=== PATIENT | female | born 1990 | race Caucasian/White ===

== ENCOUNTER 2017-03-29 15:10 | Emergency (ER) | payer MEDICAID ==
[~2017-03-29] VITALS: Ht 160 cm; Wt 70.0 kg
[~2017-03-29 15:10] MED LIST: STOO100T PO
[2017-03-29 15:12] VITALS: BP 126/78; PULSE 80; RESP 17; TEMP 98.5; O2SAT 98
--- NOTE | 2017-03-29 15:43 | PD ---
Physical Exam Time Seen by Provider: 15:41 Narrative 26yo F c/o nausea, dizziness, lightheadedness, and feeling hot, lower abd pain, and having to push to pee x 1month. Deis abd vag dc, odor, irritation. LMP mid March. Patient seen in triage. VS reviewed. Patient awaiting bed placement. Data Data Last Documented VS Vital Signs Date Time Temp Pulse Resp B/P (MAP) Pulse Ox O2 Delivery O2 Flow Rate FiO2 03/29/17 15:12 98.5 80 17 126/78 (94) 98 MDM Supervised Visit with HELEN: Jennifer Coley Mar 29, 2017 15:43
[2017-03-29] MEDS ORDERED: SODIUM CHLORIDE 0.9% FLUSH 10 ML FLUSH IV FLUSH PRN (15:45)
[2017-03-29 16:19] LABS: BLOOD, URINE NEG (NEG); GLUCOSE,URINE NEG (NEG); KETONE, URINE NEG (NEG); NITRITE,URINE NEG (NEG); PH, URINE 7.5 (5.0-8.5); SQUAMOUS EPITHELIAL CELL URINE 1 /hpf (0-5); URINE COLOR YELLOW (YELLW/STRAW)
[2017-03-29 16:23] LABS: COMMENT (UR) CULT NOT INDICATED; CULTURE IF INDICATED CULT NOT INDICATED
[2017-03-29 16:39] LABS: AUTOMATED NEUTROPHIL # 7.3 TH/MM3 (1.8-7.7); BASOPHIL % 0.2 % (0.0-2.0); EOSINOPHIL # 0.1 TH/MM3 (0-0.4); EOSINOPHIL % 0.5 % (0.0-4.0); HEMATOCRIT 43.1 % (35.0-46.0); HEMO FLAGS DIFF FINAL; LYMPH % 15.7 % (9.0-44.0); LYMPHOCYTE # 1.5 TH/MM3 (1.0-4.8); MEAN CORPUSCULAR HEMOGLOBIN 30.5 PG (27.0-34.0); MEAN CORPUSCULAR HGB CONC 33.5 % (32.0-36.0); NEUT % 77.6 % (16.0-70.0); PLATELET COUNT 227 TH/MM3 (150-450); RED BLOOD COUNT 4.74 MIL/MM3 (4.00-5.30); RED CELL DISTRIBUTION WIDTH 13.2 % (11.6-17.2); WHITE BLOOD COUNT 9.4 TH/MM3 (4.0-11.0)
[2017-03-29 16:48] LABS: ALT (GPT) 18 U/L (10-53); ANION GAP 2 MEQ/L (5-15); AST (GOT) 14 U/L (15-37); BLOOD UREA NITROGEN 9 MG/DL (7-18); CHLORIDE 108 MEQ/L (98-107); GLOMERULAR FILTRATION RATE 114 ML/MIN (>89); POTASSIUM 4.5 MEQ/L (3.5-5.1); SODIUM (NA) 137 MEQ/L (136-145)
[2017-03-29 16:51] LABS: ALKALINE PHOSPHATASE 70 U/L (45-117); TOTAL BILIRUBIN ADULT 0.3 MG/DL (0.2-1.0)
--- NOTE | 2017-03-29 17:44 | PD ---
HPI Chief Complaint: GI Complaint Time Seen by Provider: 17:43 Travel History International Travel<30 days: No Contact w/Intl Traveler<30days: No Traveled to known affect area: No History of Present Illness HPI 26 year old female with no significant medical history presents to emergency department for evaluation of difficulty urinating, nausea, constipation, and generalized fatigue over the last months to a year. Denies any vaginal discharge or bleeding. No chance of . Patient states she has been to multiple physicians and nobody has been able to figure out what is wrong with her. She denies any acute changes in her symptoms. She states that she feels dehydrated. She denies any fever or chills. No chest Tightness during a difficult to breathing. No other symptoms to report. PFSH Past Medical History ADHD: Yes Diminished Hearing: No Immunizations Current: Yes ?: Not : 3 Para: 2 Past Surgical History Cholecystectomy: Yes Social History Alcohol Use: No Tobacco Use: No Substance Use: No Allergies-Medications (Allergen,Severity, Reaction): Coded Allergies: No Known Allergies (Unverified , 03/29/17) Reported Meds & Prescriptions Reported Meds & Active Scripts Active No Active Prescriptions or Reported Medications Review of Systems Except as stated in HPI: all other systems reviewed are Neg Physical Exam Narrative GENERAL: Well-nourished female patient, ambulatory and in no acute distress. SKIN: Focused skin assessment warm/dry. HEAD: Atraumatic. Normocephalic. EYES: Pupils equal and round. No scleral icterus. No injection or drainage. ENT: No nasal bleeding or discharge. Mucous membranes pink and moist. NECK: Trachea midline. No JVD. CARDIOVASCULAR: Regular rate and rhythm. No murmur appreciated. RESPIRATORY: No accessory muscle use. Clear to auscultation. Breath sounds equal bilaterally. GASTROINTESTINAL: Abdomen soft, non-tender, nondistended. No rebound tenderness. No guarding. Hepatic and splenic margins not palpable. MUSCULOSKELETAL: No obvious deformities. No clubbing. No cyanosis. No edema. NEUROLOGICAL: Awake and alert. No obvious cranial nerve deficits. Motor grossly within normal limits. Normal speech. Data Data Last Documented VS Vital Signs Date Time Temp Pulse Resp B/P (MAP) Pulse Ox O2 Delivery O2 Flow Rate FiO2 03/29/17 17:58 16 03/29/17 17:53 97.8 78 107/67 (80) 99 Room Air Orders Orders Complete Blood Count With Diff (03/29/17 15:44) Comprehensive Metabolic Panel (03/29/17 15:44) Lipase (03/29/17 15:44) Urinalysis - C+S If Indicated (03/29/17 15:44) Iv Access Insert/Monitor (03/29/17 15:44) Sodium Chloride 0.9% Flush (Ns Flush) (03/29/17 15:45) Ed Urine Pregnancytest Poc (03/29/17 15:44) Sodium Chlor 0.9% 1000 Ml Inj (Ns 1000 M (03/29/17 18:00) Ondansetron Inj (Zofran Inj) (03/29/17 18:00) Ketorolac Inj (Toradol Inj) (03/29/17 18:00) Labs Laboratory Tests Test 03/29/17 13:55 03/29/17 15:45 White Blood Count 9.4 TH/MM3 Red Blood Count 4.74 MIL/MM3 Hemoglobin 14.4 GM/DL Hematocrit 43.1 % Mean Corpuscular Volume 91.0 FL Mean Corpuscular Hemoglobin 30.5 PG Mean Corpuscular Hemoglobin Concent 33.5 % Red Cell Distribution Width 13.2 % Platelet Count 227 TH/MM3 Mean Platelet Volume 7.3 FL Neutrophils (%) (Auto) 77.6 % Lymphocytes (%) (Auto) 15.7 % Monocytes (%) (Auto) 6.0 % Eosinophils (%) (Auto) 0.5 % Basophils (%) (Auto) 0.2 % Neutrophils # (Auto) 7.3 TH/MM3 Lymphocytes # (Auto) 1.5 TH/MM3 Monocytes # (Auto) 0.6 TH/MM3 Eosinophils # (Auto) 0.1 TH/MM3 Basophils # (Auto) 0.0 TH/MM3 CBC Comment DIFF FINAL Differential Comment Blood Urea Nitrogen 9 MG/DL Creatinine 0.63 MG/DL Random Glucose 90 MG/DL Total Protein 7.4 GM/DL Albumin 3.9 GM/DL Calcium Level 8.7 MG/DL Alkaline Phosphatase 70 U/L Aspartate Amino Transf (AST/SGOT) 14 U/L Alanine Aminotransferase (ALT/SGPT) 18 U/L Total Bilirubin 0.3 MG/DL Sodium Level 137 MEQ/L Potassium Level 4.5 MEQ/L Chloride Level 108 MEQ/L Carbon Dioxide Level 27.0 MEQ/L Anion Gap 2 MEQ/L Estimat Glomerular Filtration Rate 114 ML/MIN Lipase 114 U/L Urine Color YELLOW Urine Turbidity CLEAR Urine pH 7.5 Urine Specific [place] 1.017 Urine Protein NEG mg/dL Urine Glucose (UA) NEG mg/dL Urine Ketones NEG mg/dL Urine Occult Blood NEG Urine Nitrite NEG Urine Bilirubin NEG Urine Urobilinogen LESS THAN 2.0 MG/DL Urine Leukocyte Esterase NEG Urine WBC LESS THAN 1 /hpf Urine Squamous Epithelial Cells 1 /hpf Microscopic Urinalysis Comment CULT NOT INDICATED MDM Medical Decision Making Medical Screen Exam Complete: Yes Emergency Medical Condition: Yes Medical Record Reviewed: Yes Differential Diagnosis Electrolyte abnormality versus generalized fatigue versus urinary tract infection versus dehydration Narrative Course 26 year-old female presents to emergency department for evaluation of multiple genital complaints. Patient appears without distress. Her vital signs are stable. Urinalysis is without acute concern. Urine test is negative. Abdominal assessment is benign. Patient was given IV fluids and reassess. Patient states herself that symptoms have been intermittently ongoing for the last 6 months to a year. She asked what else could be. I explained her the several different things that should be further evaluated outpatient. I advised that she continue follow-up with specialist as already established. She agrees to return immediately with any acute worsening of symptoms. Diagnosis Primary Impression: Fatigue Qualified Codes: R53.83 - Other fatigue Additional Impressions: Nonspecific abdominal pain Urinary incontinence, urge Referrals: Primary Care Physician Patient Instructions: Abdominal Pain (ED), Fatigue (ED), General Instructions Additional Instructions: Rest Maintain adequate oral hydration Follow-up with a primary care provider Seek gastroenterology evaluation Return immediately with any acute worsening symptoms Med/Other Pt SpecificInfo: No Change to Meds Scripts No Active Prescriptions or Reported Meds Disposition: DISCHARGE HOME Condition: Stable Annetta Vieira ADITYA Mar 29, 2017 17:44
[2017-03-29 17:53] VITALS: BP 107/67; PULSE 78; RESP 16; TEMP 97.8; O2SAT 99
[2017-03-29] MEDS ORDERED: ONDANSETRON HCL 4 MG/2 ML VIAL IV PUSH ONE (18:00)
[2017-03-29] MEDS ORDERED: SODIUM CHLOR 0.9% 1000 ML INJ 1,000 ML IV ONE (18:00)
[2017-03-29] MEDS ORDERED: KETOROLAC TROMETHAMINE 30 MG/ML (IVP) VIAL IV PUSH ONE (18:00)
[2017-03-29 18:54] VITALS: BP 118/85; RESP 16; TEMP 97.9
== END 2017-03-29 18:55 | disposition home or self-care (01) ==
LOC: NEPD 15:10
DX: R53.83 Other fatigue (principal); R10.9 Unspecified abdominal pain; N39.41 Urge incontinence; F90.9 Attention-deficit hyperactivity disorder, unspecified type
CPT/HCPCS: 80053; 81001; 83690; 84703; 85025; 96361; 96374; 96375; 99284; J1885; J2405; J7030